=== PATIENT | male | born 2005 | race Two or more races ===

== ENCOUNTER 2024-06-21 23:47 | Emergency (ER) | payer MEDICAID ==
[~2024-06-21] VITALS: Ht 180.3 cm; Wt 86.4 kg
[2024-06-22 06:39] VITALS: BP 125/78; PULSE 85; RESP 16; TEMP 98; O2SAT 95
== END 2024-06-22 07:01 | disposition home or self-care (01) ==
LOC: EMS 23:50
DX: T74.11XA Adult physical abuse, confirmed, initial encounter (principal); Y04.8XXA Assault by other bodily force, initial encounter; Y93.89 Activity, other specified; Y92.89 Other specified places as the place of occurrence of the external cause; Y99.8 Other external cause status
CPT/HCPCS: 70110; 99283

== ENCOUNTER 2024-06-24 19:09 | Inpatient (IN) | payer MEDICAID ==
[~2024-06-24] VITALS: Ht 180.3 cm; Wt 106.7 kg
[2024-06-24 22:52] VITALS: O2SAT 100
[2024-06-24 23:04] LABS: COVID AG,FIA SOURCE NASAL SWAB
[2024-06-24 23:09] LABS: APPEARANCE,URINE CLEAR (CLEAR); BILIRUBIN,URINE NEGATIVE (NEGATIVE); COLOR,URINE YELLOW (YELLOW); GLUCOSE, URINE (UA) NEGATIVE (NEGATIVE); LEUKOCYTE ESTERASE ,URINE NEGATIVE (NEGATIVE); NITRATE,URINE NEGATIVE (NEGATIVE); OCCULT BLOOD,URINE NEGATIVE (NEGATIVE); PH,URINE 5.5 (5.0-8.0); PH,URINE DRUG SCREEN 5.5 (5.0-8.0); PROTEIN,URINE 30-70 mg/dL (NEGATIVE); SPECIFIC GRAVITIY, URINE 1.037 (1.003-1.030); UROBILINOGEN,URINE <=1.0 mg/dL (<=1.0)
[2024-06-24 23:18] LABS: ALCOHOL, URINE DRUG SCREEN NEGATIVE (NEGATIVE); AMPHET/METH SCREEN,URINE POSITIVE (NEGATIVE); BARBITURATE SCREEN, URINE NEGATIVE (NEGATIVE); BENZODIAZEPINES SCREEN,URINE NEGATIVE (NEGATIVE); CANNABINOID SCREEN,URINE POSITIVE (NEGATIVE); COCAINE SCREEN,URINE POSITIVE (NEGATIVE); METHADONE SCREEN, URINE NEGATIVE (NEGATIVE); OPIATE SCREEN,URINE NEGATIVE (NEGATIVE); PHENCYCLIDINE SCREEN,URINE NEGATIVE (NEGATIVE)
[2024-06-24 23:23] LABS: SARS-COV2 (COVID) ANTIGEN,FIA Negative (Negative)
[2024-06-24 23:23] LABS: BASOPHILS % (AUTO) 0.6 % (0.0-2.0); EOSINOPHILS % (AUTO) 3.9 % (1.0-6.0); HEMATOCRIT 43.9 % (41-53); HEMOGLOBIN 14.3 g/dL (13.5-17.5); LYMPHOCYTES # (AUTO) 2.1 K/uL (1.0-4.8); LYMPHOCYTES % (AUTO) 21.7 % (22.0-44.0); MEAN CORPUSCULAR HEMOGLOBIN 31.2 pg (26.0-34.0); MEAN CORPUSCULAR HGB CONC 32.7 G/dL (31.0-37.0); MEAN CORPUSCULAR VOLUME 95 fL (80-100); MONOCYTES # (AUTO) 0.9 K/uL (0.1-1.0); MONOCYTES % (AUTO) 9.5 % (2.0-9.0); NEUTROPHILS # (AUTO) 6.2 K/uL (1.8-7.7); NEUTROPHILS % (AUTO) 64.3 % (40.0-70.0); PLATELET COUNT (AUTO) 280 K/uL (150-450); RED CELL DISTRIBUTION WIDTH 12.9 % (11.5-14.5); WHITE BLOOD COUNT (AUTO) 9.6 K/uL (4.5-11.0)
[2024-06-24 23:33] LABS: ANION GAP 8 mmol/L (8-16); CALCIUM, TOTAL 8.7 mg/dL (8.8-10.5); CARBON DIOXIDE 31 mmol/L (22-29); CHLORIDE 103 mmol/L (98-107); CREATININE 1.01 mg/dL (0.60-1.30); GLOMERULAR FILTR. RATE CALC > 60 mL/min (>60); GLUCOSE,RANDOM 97 mg/dL (70-110); POTASSIUM 4.1 mmol/L (3.5-5.1); SODIUM SERUM 142 mmol/L (136-145); UREA NITROGEN, BLOOD 15 mg/dL (7-18)
[2024-06-24 23:37] LABS: ALCOHOL, BLOOD (SERUM) < 3 mg/dL (0-10)
[2024-06-24 23:39] LABS: ALANINE AMINOTRANSFERASE 47 U/L (12-78); ALBUMIN 3.8 g/dL (3.4-5.0); ALKALINE PHOSPHATASE 95 U/L (46-116); ASPARTATE AMINOTRANSFERASE 72 U/L (15-37); BILIRUBIN,TOTAL 0.5 mg/dL (0.1-1.0); TOTAL PROTEIN, SERUM 7.3 g/dL (6.4-8.2)
[2024-06-25 03:05] VITALS: BP 127/87; PULSE 88; RESP 18; TEMP 96.8; O2SAT 99
[2024-06-25] MEDS ORDERED: INFLUENZA VIRUS VACCINE TVS (6MO+) 2024-25/PF 45 MCG/0.5 ML SYRINGE IM. ONE (05:45)
[2024-06-25] MEDS ORDERED: ALBUTEROL SULFATE HFA 90 MCG/PUFF 8 GM INHALER IH PRN (06:15)
[2024-06-25] MEDS ORDERED: CloNIDine HCL 0.1 MG TABLET PO PRN (06:15)
[2024-06-25] MEDS ORDERED: LOPERAMIDE HCL 2 MG CAPSULE PO PRN (06:15)
[2024-06-25] MEDS ORDERED: ACETAMINOPHEN 325 MG TABLET PO PRN (06:15)
[2024-06-25] MEDS ORDERED: IBUPROFEN 400 MG TABLET PO PRN (06:15)
[2024-06-25] MEDS ORDERED: MAGNESIUM HYDROXIDE SUSPENSION 30 ML UDCUP PO PRN (06:15)
[2024-06-25] MEDS: LORazepam 2 MG TABLET PO PRN (09:58)
[2024-06-25] MEDS: NICOTINE 14 MG/24 HOUR PATCH TD PRN (09:59)
[2024-06-25 13:15] VITALS: BP 111/64; PULSE 89; RESP 17; TEMP 97.4; O2SAT 95
[2024-06-25] MEDS: ARIPiprazole 15 MG TABLET PO SCH (14:55)
[2024-06-25] MEDS: GuaiFENesin/D-METHORPHAN [SUGAR-FREE] 200-20MG/10 ML SYRUP UDCUP PO PRN (15:08)
[2024-06-25] MEDS: SERTRALINE HCL 50 MG TABLET PO SCH (16:36)
[2024-06-25] MEDS: HALOPERIDOL 5 MG TABLET PO PRN (18:49)
[2024-06-25] MEDS: ONDANSETRON 4 MG TABLET PO PRN (20:20)
[2024-06-25 20:25] VITALS: BP 117/76; PULSE 96; RESP 18; TEMP 97.6; O2SAT 97
[2024-06-26] MEDS: ZOLPIDEM TARTRATE 10 MG TABLET PO PRN (00:14)
[2024-06-26 08:07] LABS: HEPATITIS C AB (EIA) Non Reactive (Non Reactive)
[2024-06-26 08:50] LABS: HEMOGLOBIN A1C 5.5 % (3.8-5.6)
[2024-06-26 08:51] VITALS: BP 149/91; PULSE 100; RESP 17; TEMP 96.5; O2SAT 100
[2024-06-26 09:09] LABS: CHOL/HDL RATIO 2.5 (4.2-7.3); THYROID STIMULATING HORMONE 0.59 uIU/mL (0.36-3.74)
[2024-06-26] MEDS: NICOTINE 21 MG/24 HOUR PATCH TD SCH (11:50)
[2024-06-26 20:22] VITALS: BP 144/99; PULSE 99; RESP 16; TEMP 98.2; O2SAT 99
[2024-06-26] MEDS: MAG HYDROX/ALUMINUM HYD/SIMETH ES 30 ML SUSPENSION UDCUP PO PRN (21:18)
[2024-06-27 08:40] VITALS: BP 141/85; RESP 18; TEMP 97.4; O2SAT 96
[2024-06-27 09:35] LABS: APPEARANCE,URINE CLEAR (CLEAR); BILIRUBIN,URINE NEGATIVE (NEGATIVE); COLOR,URINE COLORLESS (YELLOW); GLUCOSE, URINE (UA) NEGATIVE (NEGATIVE); KETONES,URINE NEGATIVE (NEGATIVE); LEUKOCYTE ESTERASE ,URINE NEGATIVE (NEGATIVE); NITRATE,URINE NEGATIVE (NEGATIVE); OCCULT BLOOD,URINE NEGATIVE (NEGATIVE); PROTEIN,URINE NEGATIVE (NEGATIVE); SPECIFIC GRAVITIY, URINE 1.008 (1.003-1.030); UROBILINOGEN,URINE <=1.0 mg/dL (<=1.0)
[2024-06-27 09:49] LABS: ALCOHOL, URINE DRUG SCREEN NEGATIVE (NEGATIVE); AMPHET/METH SCREEN,URINE NEGATIVE (NEGATIVE); BARBITURATE SCREEN, URINE NEGATIVE (NEGATIVE); BENZODIAZEPINES SCREEN,URINE NEGATIVE (NEGATIVE); CANNABINOID SCREEN,URINE POSITIVE (NEGATIVE); COCAINE SCREEN,URINE NEGATIVE (NEGATIVE); METHADONE SCREEN, URINE NEGATIVE (NEGATIVE); OPIATE SCREEN,URINE NEGATIVE (NEGATIVE); PHENCYCLIDINE SCREEN,URINE NEGATIVE (NEGATIVE)
[2024-06-27 20:34] VITALS: BP 145/91; PULSE 85; RESP 18; TEMP 96.7; O2SAT 98
[2024-06-28 01:23] VITALS: BP 138/84; PULSE 102; RESP 18; TEMP 97.2
[2024-06-28 08:00] VITALS: BP 153/93; PULSE 107; RESP 18; TEMP 96.8; O2SAT 97
[2024-06-28] MEDS: SERTRALINE HCL 50 MG TABLET PO ONE (10:17)
[2024-06-28] MEDS: DOCUSATE SODIUM 100 MG CAPSULE PO PRN (15:59)
[2024-06-28 20:00] VITALS: BP 134/82; PULSE 99; RESP 18; TEMP 97.9; O2SAT 96
[2024-06-29 08:15] VITALS: BP 127/97; PULSE 87; RESP 16; TEMP 97.2; O2SAT 95
[2024-06-29 08:44] VITALS: BP 127/97; PULSE 87; RESP 16; TEMP 97.2; O2SAT 95
[2024-06-29 17:53] VITALS: BP 126/74; RESP 17
[2024-06-29 20:06] VITALS: BP 143/75; PULSE 88; RESP 18; TEMP 97.8
[2024-06-30 08:11] VITALS: BP 129/84; PULSE 120; RESP 19; TEMP 97.7; O2SAT 97
[2024-06-30] MEDS: PETROLATUM,WHITE 28 GM JELLY TP PRN (18:41)
[2024-06-30 20:05] VITALS: BP 149/86; PULSE 93; RESP 18; TEMP 97.3; O2SAT 95
[2024-07-01 09:04] VITALS: BP 138/93; PULSE 98; RESP 15; TEMP 97.8; O2SAT 96
[2024-07-01] MEDS: MULTIVITAMINS WITH MINERALS, THERAPEUTIC TABLET PO SCH (09:29)
[2024-07-01] MEDS ORDERED: ARIP15TA2 PO (15:39)
[2024-07-01] MEDS ORDERED: SERT20OR6 PO (15:41)
[2024-07-01 20:12] VITALS: BP 151/70; PULSE 100; RESP 17; TEMP 98.9; O2SAT 96
== END 2024-07-01 17:15 | disposition left against medical advice (07) | DRG 750 ==
LOC: EMS 19:09 → B2S 06-25 01:01
PROVIDERS: ADMIT Psychiatry & Neurology Child & Adolescent Psychiatry; ATTEND Psychiatry & Neurology Child & Adolescent Psychiatry
PROC: GZ56ZZZ Individual Psychotherapy, Supportive (ICD-10-PCS; 2024-06-25)
PROC: GZHZZZZ Group Psychotherapy (ICD-10-PCS; principal; 2024-06-27)
PROC: GZ52ZZZ Individual Psychotherapy, Cognitive (ICD-10-PCS; 2024-06-27)
DX: F20.0 Paranoid schizophrenia (principal); Z91.148 Patient's other noncompliance with medication regimen for other reason; F12.10 Cannabis abuse, uncomplicated; F15.10 Other stimulant abuse, uncomplicated; Z20.822 Contact with and (suspected) exposure to COVID-19; Z59.00 Homelessness unspecified; G47.00 Insomnia, unspecified; F14.10 Cocaine abuse, uncomplicated; F32.A Depression, unspecified; F41.9 Anxiety disorder, unspecified; Z53.29 Procedure and treatment not carried out because of patient's decision for other reasons; Z88.8 Allergy status to other drugs, medicaments and biological substances
CPT/HCPCS: 80048; 80061; 80076; 80307; 81003; 83036; 84443; 85025; 86803; 87340; 99285; G0480; Q0162